=== PATIENT | male | born 1965 | race Caucasian/White ===

== ENCOUNTER 2019-03-06 02:30 | Inpatient (IN) | payer OTHER ==
[~2019-03-06] VITALS: Ht 182.9 cm; Wt 71.9 kg
[2019-03-06 02:48] LABS: BASOPHILS ABSOLUTE AUTO 0.01 K/mm3 (0.00-0.23); BASOPHILS PERCENT AUTO 0 % (0-2); EOSINOPHILS PERCENT AUTO 0 % (0-6); Hematocrit 23.7 % (37.0-53.0); Hemoglobin 7.6 g/dL (13.5-17.5); IMMATURE GRAN ABSOLUTE AUTO 0.08 K/mm3 (0.00-0.10); IMMATURE GRAN PERCENT AUTO 1 % (0-1); LYMPHOCYTES ABSOLUTE AUTO 1.23 K/mm3 (0.84-5.20); LYMPHOCYTES PERCENT AUTO 9 % (21-46); MONOCYTES ABSOLUTE AUTO 0.46 K/mm3 (0.16-1.47); MONOCYTES PERCENT AUTO 4 % (4-13); Mean Corpuscular HGB 30.8 pg (26.0-34.0); Mean Corpuscular HGB Conc 32.1 g/dL (31.5-36.5); Mean Corpuscular Volume 96 fL (80-100); Mean Platelet Volume 10.2 fL (9.1-12.4); NEUTROPHILS PERCENT AUTO 86 % (41-73); Platelet Count 283 K/mm3 (150-400); RDW Coefficient Variation 11.9 % (11.7-14.2); RDW Standard Deviation 41.8 fL (35.1-46.3); Red Blood Cell Count 2.47 M/mm3 (4.30-5.90); White Blood Cell Count 13.08 K/mm3 (4.00-11.30)
[2019-03-06 03:08] LABS: Alanine Aminotransfer (ALT/SGP 19 U/L (12-78); Albumin, Blood 2.4 g/dL (3.4-5.0); Albumin/Globulin Ratio 0.9 (0.8-1.8); Alk Phos 52 U/L (50-136); Anion Gap 8 mmol/L (6-16); Aspartate Aminotrans (AST/SGOT 14 U/L (12-37); Bilirubin, Total 0.2 mg/dL (0.1-1.0); Blood Urea Nitrogen 67 mg/dL (8-24); Bun/Creatinine Ratio 81.5 (12.0-20.0); CO2, Blood 26 mmol/L (21-32); Calcium, Blood 7.3 mg/dL (8.5-10.1); Chloride, Blood 107 mmol/L (98-108); Creatinine, Blood 0.82 mg/dL (0.60-1.20); Globulin, Blood 2.6 g/dL (2.2-4.0); Glomerular Filtration Rate >60 (60-); Glucose, Blood 192 mg/dL (70-99); Potassium, Blood 3.6 mmol/L (3.5-5.5); Sodium, Blood 141 mmol/L (136-145)
[2019-03-06 06:28] LABS: U Amphetamine Screen DETECTED; U Barbituate Screen Not Detected; U Benzodiazapine Screen Not Detected; U Buprenorphine Screen Not Detected; U Cannabinoids Screen DETECTED; U Cocaine Screen Not Detected; U Methadone Screen Not Detected; U Methamphetamine Screen DETECTED; U Opiates Screen Not Detected; U Oxycodone Screen Not Detected; U Phencyclidine Screen Not Detected; U Propoxyphene Screen Not Detected
[2019-03-06 08:09] LABS: Hematocrit 27.3 % (37.0-53.0); Hemoglobin 8.8 g/dL (13.5-17.5); Mean Corpuscular HGB 29.8 pg (26.0-34.0); Mean Corpuscular HGB Conc 32.2 g/dL (31.5-36.5); Mean Platelet Volume 9.9 fL (9.1-12.4); Platelet Count 245 K/mm3 (150-400); RDW Coefficient Variation 13.2 % (11.7-14.2); RDW Standard Deviation 44.5 fL (35.1-46.3); Red Blood Cell Count 2.95 M/mm3 (4.30-5.90); White Blood Cell Count 14.21 K/mm3 (4.00-11.30)
[2019-03-06 08:11] LABS: Mean Corpuscular Volume 93 fL (80-100)
[2019-03-06 08:17] LABS: International Normalized Ratio 0.98; Prothrombin Time Results 10.4 Sec (9.7-11.5)
[2019-03-06 08:24] LABS: Alanine Aminotransfer (ALT/SGP 24 U/L (12-78); Albumin, Blood 2.4 g/dL (3.4-5.0); Albumin/Globulin Ratio 0.8 (0.8-1.8); Alk Phos 54 U/L (50-136); Anion Gap 6 mmol/L (6-16); Aspartate Aminotrans (AST/SGOT 16 U/L (12-37); Bilirubin, Total 0.3 mg/dL (0.1-1.0); Blood Urea Nitrogen 65 mg/dL (8-24); Bun/Creatinine Ratio 101.2 (12.0-20.0); CO2, Blood 26 mmol/L (21-32); Calcium, Blood 7.6 mg/dL (8.5-10.1); Chloride, Blood 111 mmol/L (98-108); Creatinine, Blood 0.64 mg/dL (0.60-1.20); Glomerular Filtration Rate >60 (60-); Glucose, Blood 118 mg/dL (70-99); Potassium, Blood 3.8 mmol/L (3.5-5.5); Sodium, Blood 143 mmol/L (136-145); Total Protein, Blood 5.4 g/dL (6.4-8.2)
--- NOTE | 2019-03-06 09:30 | NUR ---
DR PRITCHARD: PROVIDER AT BEDSIDE TO SEE PT. STS HE WOULD LIKE TO PERFORM ENDOSCOPY LATER TODAY. PT AWARE OF THIS & IS AGREEABLE. WILL CONTINUE TO MONITOR & UPDATE NEEDED.
--- NOTE | 2019-03-06 09:40 | NUR ---
DR GREEN / UPDATE: PROVIDER AT BEDSIDE THIS AM TO SEE PT. STS HE MAY BE PCU STATUS AFTER H&H RESULTS BACK IF IMPROVING. NO OTHER CHANGES AT THIS TIME. CALL TO PROVIDER TO NOTIFY HIM OF PT's CURRENT HBG 8.8. HE STS THAT SECOND UNIT OF BLOOD MAY BE HELD AT THIS TIME & IS NOTIFIED OF DR BENITES PLANS. WILL CONTINUE TO MONITOR & UPDATE NEEDED.
--- NOTE | 2019-03-06 12:00 | NUR ---
ENDOSCOPY: DR PRITCHARD & DAY SURGERY TEAM AT BEDSIDE TO PERFORM SCOPE. WILL CONTINUE TO MONITOR & ASSIST PRN.
--- NOTE | 2019-03-06 12:40 | NUR ---
PROCEDURE COMPLETED: DAY SURGERY TEAM REMAINS AT BEDSIDE. DR PRITCHARD OUT OF ROOM, PT RECEIVED ONE CLIP IN STOMACH, SEE PROVIDER NOTE. MATTHEW PER EMAR BY DAY PROPERTY LOSS INSURANCE CLAIM ADJUSTER FOR PT's C/O NAUSEA/ DRY HEAVES. DR PRITCHARD REQUESTS THAT THE PT REMAIN IN ICU FOR AT LEAST THE AFTERNOON, IF CONTINUES DOING WELL, MAY CHANGE STATUS AT THAT TIME. WILL CONTINUE TO MONITOR & UPDATE NEEDED.
--- NOTE | 2019-03-06 12:43 | NUR ---
03/06/19 1243 RaissaBryon PATIENT DETERMINED TO BE ASA APPROPRIATE FOR PROPOFOL SEDATION PRIOR TO START OF PROCEDURE BY DR. Julia Mobley PlacedHistory, Chart, Medications and Allergies reviewed before start of procedure.MONITOR INTACT WITH CONTINUOUS PULSE OXIMETRY AND INTERMITTENT BP.Patient confirms NPO status and agrees with scheduled surgery.O2 VIA N/C INTACT THROUGHOUT SEDATION/PROCEDURE. VSS THROUGH OUT PROCEDURE AND TAKEN EVERY 3 MINUTES.
[2019-03-06 13:47] LABS: Hematocrit 27.5 % (37.0-53.0); Hemoglobin 9.2 g/dL (13.5-17.5)
--- NOTE | 2019-03-06 18:40 | NUR ---
SHIFT SUMMARY: NO ACUTE CHANGES SINCE PRIOR UPDATES. PT REMAINS A&O, PLEASANT & COOPERATIVE. HE IS MORE AWAKE THIS EVENING, ABLE TO WAKE LONG ENOUGH TO EAT BUT THEN QUICKLY RESUMES SLEEPING. LS ARE CLEAR T/O, PT ON RA W/ O2 SATS > 92%. MONITOR SHOWS SR W/ HR 90s, BP STABLE. BT x4, PT HAS HAD NO BMs OR EPISODES OF EMESIS DURING THIS SHIFT. DOES STATE HAVING MILD ABD PAIN AFTER DINNER. PT VOIDING W/O DIFFICULTY USING URINAL. PROTONIX DRIP PER EMAR. WILL CONTINUE TO MONITOR & REPORT OFF TO ONCOMING RN.
[2019-03-06 19:21] LABS: Hematocrit 28.3 % (37.0-53.0); Hemoglobin 9.1 g/dL (13.5-17.5)
[2019-03-07 03:33] LABS: BASOPHILS ABSOLUTE AUTO 0.03 K/mm3 (0.00-0.23); BASOPHILS PERCENT AUTO 0 % (0-2); EOSINOPHILS PERCENT AUTO 1 % (0-6); Hematocrit 24.4 % (37.0-53.0); Hemoglobin 8.1 g/dL (13.5-17.5); IMMATURE GRAN ABSOLUTE AUTO 0.04 K/mm3 (0.00-0.10); IMMATURE GRAN PERCENT AUTO 0 % (0-1); LYMPHOCYTES PERCENT AUTO 17 % (21-46); MONOCYTES ABSOLUTE AUTO 0.46 K/mm3 (0.16-1.47); MONOCYTES PERCENT AUTO 4 % (4-13); Mean Corpuscular HGB 30.8 pg (26.0-34.0); Mean Corpuscular HGB Conc 33.2 g/dL (31.5-36.5); Mean Corpuscular Volume 93 fL (80-100); Mean Platelet Volume 9.3 fL (9.1-12.4); NEUTROPHILS ABSOLUTE AUTO 8.93 K/mm3 (1.96-9.15); NEUTROPHILS PERCENT AUTO 77 % (41-73); Platelet Count 230 K/mm3 (150-400); RDW Coefficient Variation 13.5 % (11.7-14.2); RDW Standard Deviation 45.3 fL (35.1-46.3); Red Blood Cell Count 2.63 M/mm3 (4.30-5.90); White Blood Cell Count 11.56 K/mm3 (4.00-11.30)
[2019-03-07 03:48] LABS: Anion Gap 3 mmol/L (6-16); Blood Urea Nitrogen 33 mg/dL (8-24); Bun/Creatinine Ratio 49.3 (12.0-20.0); CO2, Blood 31 mmol/L (21-32); Calcium, Blood 7.7 mg/dL (8.5-10.1); Chloride, Blood 112 mmol/L (98-108); Creatinine, Blood 0.67 mg/dL (0.60-1.20); Glomerular Filtration Rate >60 (60-); Glucose, Blood 114 mg/dL (70-99); Sodium, Blood 146 mmol/L (136-145)
--- NOTE | 2019-03-07 07:39 | NUR ---
ASSUMED CARE: REPORT RECEIVED FROM VALDEMAR Krause RN. ASSUMED CARE OF THIS PT AT APPROX 0700. ON ASSESSMENT, THE PT IS A&O. HE IS DROWSY & STS FEELING OF GENERAL WEAKNESS. HE REQUESTS TAKING A SHOWER THIS AM. LS ARE CLEAR T/O, PT ON RA W/ O2 SATS > 92%. MONITOR SHOWS SR W/ HR 60-70s, BP STABLE. PT HAS NO GI COMPLAINTS & HAS HAD NO SIGNS OF BLEEDING. PT VOIDS USING URINAL W/O DIFFICULTY. WILL CONTINUE TO MONITOR & UPDATE NEEDED.
--- NOTE | 2019-03-07 08:00 | NUR ---
DR GREEN: PROVIDER IS AT BEDSIDE TO SEE PT. STS HE MAY BE TRANSFERRED TO MEDICAL STATUS W/ NO TELE NEEDED, ORDERS PLACED. NO OTHER CHANGES AT THIS TIME. WILL CONTINUE TO MONITOR & UPDATE NEEDED.
[2019-03-07 09:01] LABS: Hematocrit 24.1 % (37.0-53.0); Hemoglobin 7.9 g/dL (13.5-17.5)
--- NOTE | 2019-03-07 16:00 | NUR ---
DR PAREKH: CALL TO PROVIDER W/ REQUEST FOR CLARIFICATION REGARDING PROTONIX DRIP ORDER. HE STS HE WOULD LIKE THE INFUSION TO CONTINUE FOR A TOTAL OF 72 HRS. PER EMAR, INFUSION SHOULD BE COMPLETE 03/09/19 @ 1000. WILL CONTINUE TO MONITOR & UPDATE NEEDED.
--- NOTE | 2019-03-07 17:17 | NUR ---
SHIFT SUMMARY: NO ACUTE CHANGES SINCE PRIOR UPDATES. PT REMAINS A&O, PLEASANT & COOPERATIVE. HE HAS BEEN DROWSY FOR MOST OF THIS SHIFT BUT AWAKENS EASILY. LS ARE CLEAR T/O, PT ON RA W/ O2 SATS > 92%. HEART MONITOR HAS BEEN REMOVED PT IS NOW MEDICAL STATUS. BP STABLE. PT HAS NO GI COMPLAINTS & VOIDS W/O DIFFICULTY USING URINAL AT BEDSIDE. PROTONIX DRIP INFUSING PER ORDERS. WILL CONTINUE TO MONITOR & REPORT OFF TO ONCOMING RN.
--- NOTE | 2019-03-07 21:27 | NUR ---
ASSUMED CARE OF PT, REPORT RCV'D FROM CEM NUNN. PT ALERT AND ORIENTED, DROWSY , NO COMPLAINT OF PAIN, NAUSEA, VOMITING. NO EVIDENCE OF BLOOD IN STOOL TODAY PER DAYSHIFT NURSE. PROTONIX GTT INFUSING. VSS. SEE FULL SHIFT ASSESSMENT.
--- NOTE | 2019-03-07 22:05 | NUR ---
REPORT RECIEVED FROM CAYETANO MANAGER SHAREPOINT AT 1471 AND PT T/F TO ROOM 355 AT [phone].
--- NOTE | 2019-03-07 22:15 | NUR ---
PT ORIENTED TO ROOM AND CALL SYSTEM. THIS RN AGREES TO PREVIOUS SUPERVISOR STRIPPING'S SHIFT ASSESSMENT. VSS UPON T/F AND PT DENIES COMPLAINTS/NEEDS. HE'S A/OX4 AND INDEPENDENT IN ROOM. PT AWARE TO ALERT STAFF OF ANY BM'S TO CHECK FOR S/S BLEEDING. PROTONIX GTT CONT'S INFUSING. ORANGE JUICE PROVIDED PER PT REQUEST. WCTM FOR CHANGES.
--- NOTE | 2019-03-08 03:24 | NUR ---
SUMMARY: PT WAS ICU T/F THIS SHIFT. HE IS A/OX4, CALLS APPROPRIATELY AND INDEPENDENT IN ROOM. PROTONIX GTT INFUSES FOR GI BLEED BUT PT HAS BEEN ASYMPTOMATIC OF DISTRESS. HE DENIES DIZZINESS, N/V, ABDO PAIN/TENDERNESS AND HAS VSS/AFEBRILE. HE HASN'T HAD ANY BM'S THIS SHIFT BUT IS AWARE TO ALERT STAFF IF HE DOES TO CHECK FOR JENNIFER/OLD BLEEDING. HE IS TOLERATING FULL LIQ DIET W/O COMPLAINTS. NO ACUTE CHANGES. POSSIBLE D/C TODAY W/AM LABS PENDING. WCTM AND REPORT TO DAY RN.
[2019-03-08 04:49] LABS: BASOPHILS ABSOLUTE AUTO 0.03 K/mm3 (0.00-0.23); BASOPHILS PERCENT AUTO 1 % (0-2); EOSINOPHILS ABSOLUTE AUTO 0.24 K/mm3 (0.00-0.68); EOSINOPHILS PERCENT AUTO 4 % (0-6); Hemoglobin 7.7 g/dL (13.5-17.5); IMMATURE GRAN ABSOLUTE AUTO 0.02 K/mm3 (0.00-0.10); IMMATURE GRAN PERCENT AUTO 0 % (0-1); LYMPHOCYTES PERCENT AUTO 24 % (21-46); MONOCYTES ABSOLUTE AUTO 0.43 K/mm3 (0.16-1.47); MONOCYTES PERCENT AUTO 7 % (4-13); Mean Corpuscular HGB 30.2 pg (26.0-34.0); Mean Corpuscular HGB Conc 33.5 g/dL (31.5-36.5); Mean Platelet Volume 9.7 fL (9.1-12.4); NEUTROPHILS ABSOLUTE AUTO 4.32 K/mm3 (1.96-9.15); NEUTROPHILS PERCENT AUTO 65 % (41-73); Platelet Count 235 K/mm3 (150-400); RDW Coefficient Variation 13.2 % (11.7-14.2); RDW Standard Deviation 43.8 fL (35.1-46.3); Red Blood Cell Count 2.55 M/mm3 (4.30-5.90); White Blood Cell Count 6.64 K/mm3 (4.00-11.30)
[2019-03-08 04:57] LABS: Mean Corpuscular Volume 90 fL (80-100)
[2019-03-08 05:20] LABS: Anion Gap 2 mmol/L (6-16); Blood Urea Nitrogen 13 mg/dL (8-24); Bun/Creatinine Ratio 21.6 (12.0-20.0); CO2, Blood 32 mmol/L (21-32); Chloride, Blood 107 mmol/L (98-108); Glomerular Filtration Rate >60 (60-); Glucose, Blood 101 mg/dL (70-99); Potassium, Blood 3.6 mmol/L (3.5-5.5); Sodium, Blood 141 mmol/L (136-145)
--- NOTE | 2019-03-08 18:34 | NUR ---
SHIFT SUMMARY PT HAS HAD NO COMPLAINTS OF NAUSEA, ABDOMINAL PAIN, OR SHORTNESS OF BREATH THIS SHIFT. PROTONIX DRIP INFUSING PER ORDERS. PT TOLERATING FULL LIQUID DIET. PT INDEPENDENT IN ROOM. NO CHANGES THIS SHIFT. PLANS FOR PT TO DISCHARGE TOMORROW.
[2019-03-09 04:48] LABS: BASOPHILS ABSOLUTE AUTO 0.03 K/mm3 (0.00-0.23); BASOPHILS PERCENT AUTO 1 % (0-2); EOSINOPHILS ABSOLUTE AUTO 0.16 K/mm3 (0.00-0.68); EOSINOPHILS PERCENT AUTO 3 % (0-6); Hematocrit 22.9 % (37.0-53.0); Hemoglobin 7.7 g/dL (13.5-17.5); IMMATURE GRAN ABSOLUTE AUTO 0.02 K/mm3 (0.00-0.10); IMMATURE GRAN PERCENT AUTO 0 % (0-1); LYMPHOCYTES PERCENT AUTO 25 % (21-46); MONOCYTES ABSOLUTE AUTO 0.31 K/mm3 (0.16-1.47); MONOCYTES PERCENT AUTO 5 % (4-13); Mean Corpuscular HGB Conc 33.6 g/dL (31.5-36.5); Mean Corpuscular Volume 92 fL (80-100); Mean Platelet Volume 9.7 fL (9.1-12.4); NEUTROPHILS ABSOLUTE AUTO 4.29 K/mm3 (1.96-9.15); NEUTROPHILS PERCENT AUTO 67 % (41-73); Platelet Count 290 K/mm3 (150-400); RDW Coefficient Variation 12.9 % (11.7-14.2); RDW Standard Deviation 42.5 fL (35.1-46.3); Red Blood Cell Count 2.48 M/mm3 (4.30-5.90); White Blood Cell Count 6.41 K/mm3 (4.00-11.30)
--- NOTE | 2019-03-09 05:31 | NUR ---
SHIFT SUMMARY DENIES SOB, NAUSEA, AND PAIN. AOX4. INDEPENDENT. R FA IS SL. R AC HAS PROTONIX @ 10ML/HR. VSS ON RA. PLAN TO DC TODAY.
[2019-03-09] MEDS ORDERED: Pantoprazole So20 MG PO (11:31)
--- NOTE | 2019-03-09 13:45 | NUR ---
DISCHARGE INSTRUCTIONS COMPLETED AND DISCUSSED WITH PT EXPRESSING UNDERSTANDING. DISCUSSED IMPORTANCE OF FOLLOW UP WITH NEW PCP AND TAKING PROTONIX AFTER DISCHARGE. HAS DENIED ANY PAIN FOR NAUSEA THROUGH DAY. TOLERATING REGULAR DIET. TO CURB VIA W/C.
== END 2019-03-09 13:35 | disposition home or self-care (01) | DRG 377 ==
LOC: ER 02:30 → ICUE 04:37 → ICUW 04:37 → ICUE 05:27 → ICUW 05:27 → ICUE 05:47 → MEDS 03-07 11:11 → ICUE 03-07 11:15 → MEDS 03-07 22:05 → ENPENDDIS 03-09 11:13 → MEDS 03-09 13:35
PROVIDERS: Emergency Medicine; Hospitalist; Internal Medicine Gastroenterology; ADMIT Internal Medicine
PROC: 0W3P8ZZ Control Bleeding in Gastrointestinal Tract, Via Natural or Artificial Opening Endoscopic (ICD-10-PCS; principal; 2019-03-06 11:00)
DX: K31.82 Dieulafoy lesion (hemorrhagic) of stomach and duodenum (principal); G92 Toxic encephalopathy; F15.93 Other stimulant use, unspecified with withdrawal; D62 Acute posthemorrhagic anemia
CPT/HCPCS: 36415; 36430; 70450; 80048; 80053; 82140; 82272; 85014; 85018; 85025; 85027; 85610; 86850; 86900; 86901; 86923; 93005; 93010; 96361; 96374; 99285-25; C9113; G0378; J0171; J1430; J2354; J2405; J2704; J7030; J7050; J7120; P9016

== ENCOUNTER 2019-12-26 10:44 | Emergency (ER) | payer OTHER ==
[~2019-12-26] VITALS: Ht 182.9 cm; Wt 79.4 kg
[~2019-12-26 10:44] MED LIST: Pantoprazole So20 MG PO
[2019-12-26 11:55] LABS: BASOPHILS ABSOLUTE AUTO 0.02 K/mm3 (0.00-0.23); BASOPHILS PERCENT AUTO 0 % (0-2); EOSINOPHILS ABSOLUTE AUTO 0.01 K/mm3 (0.00-0.68); EOSINOPHILS PERCENT AUTO 0 % (0-6); Hematocrit 43.7 % (37.0-53.0); Hemoglobin 14.1 g/dL (13.5-17.5); IMMATURE GRAN ABSOLUTE AUTO 0.04 K/mm3 (0.00-0.10); IMMATURE GRAN PERCENT AUTO 0 % (0-1); LYMPHOCYTES ABSOLUTE AUTO 1.54 K/mm3 (0.84-5.20); LYMPHOCYTES PERCENT AUTO 12 % (21-46); MONOCYTES ABSOLUTE AUTO 0.64 K/mm3 (0.16-1.47); MONOCYTES PERCENT AUTO 5 % (4-13); Mean Corpuscular HGB 29.2 pg (26.0-34.0); Mean Corpuscular HGB Conc 32.3 g/dL (31.5-36.5); Mean Corpuscular Volume 91 fL (80-100); Mean Platelet Volume 9.5 fL (9.1-12.4); NEUTROPHILS ABSOLUTE AUTO 10.31 K/mm3 (1.96-9.15); NEUTROPHILS PERCENT AUTO 82 % (41-73); Platelet Count 311 K/mm3 (150-400); RDW Coefficient Variation 12.6 % (11.7-14.2); RDW Standard Deviation 41.8 fL (35.1-46.3); Red Blood Cell Count 4.83 M/mm3 (4.30-5.90); White Blood Cell Count 12.56 K/mm3 (4.00-11.30)
[2019-12-26 12:23] LABS: Alanine Aminotransfer (ALT/SGP 25 U/L (12-78); Albumin, Blood 3.6 g/dL (3.4-5.0); Albumin/Globulin Ratio 0.9 (0.8-1.8); Alk Phos 90 U/L (50-136); Anion Gap 4 mmol/L (6-16); Aspartate Aminotrans (AST/SGOT 19 U/L (12-37); Bilirubin, Total 0.5 mg/dL (0.1-1.0); Blood Urea Nitrogen 16 mg/dL (8-24); Bun/Creatinine Ratio 21.5 (12.0-20.0); CO2, Blood 31 mmol/L (21-32); Calcium, Blood 8.5 mg/dL (8.5-10.1); Chloride, Blood 104 mmol/L (98-108); Creatinine, Blood 0.74 mg/dL (0.60-1.20); Globulin, Blood 4.2 g/dL (2.2-4.0); Glomerular Filtration Rate >60 (60-); Glucose, Blood 110 mg/dL (70-99); Sodium, Blood 139 mmol/L (136-145); Total Protein, Blood 7.8 g/dL (6.4-8.2)
[2019-12-26] MEDS ORDERED: ONDA4 PO (14:14)
== END 2019-12-26 14:24 | disposition home or self-care (01) ==
LOC: ER 10:44
PROVIDERS: Emergency Medicine
DX: R11.10 Vomiting, unspecified (principal); Z87.891 Personal history of nicotine dependence
CPT/HCPCS: 36415; 74022; 80053; 83690; 85025; 93005; 93010; 99284-25

== ENCOUNTER 2021-12-22 13:00 | Emergency (ER) | payer OTHER ==
[~2021-12-22] VITALS: Ht 182.9 cm; Wt 79.4 kg
[~2021-12-22 13:00] MED LIST changes: +ONDA4 PO
[2021-12-22 13:19] LABS: BASOPHILS ABSOLUTE AUTO 0.02 K/mm3 (0.00-0.23); BASOPHILS PERCENT AUTO 0 % (0-2); EOSINOPHILS PERCENT AUTO 1 % (0-6); Hematocrit 39.1 % (37.0-53.0); Hemoglobin 13.4 g/dL (13.5-17.5); IMMATURE GRAN ABSOLUTE AUTO 0.03 K/mm3 (0.00-0.10); IMMATURE GRAN PERCENT AUTO 0 % (0-1); LYMPHOCYTES ABSOLUTE AUTO 1.39 K/mm3 (0.84-5.20); LYMPHOCYTES PERCENT AUTO 13 % (21-46); MONOCYTES ABSOLUTE AUTO 0.56 K/mm3 (0.16-1.47); MONOCYTES PERCENT AUTO 5 % (4-13); Mean Corpuscular HGB 30.7 pg (26.0-34.0); Mean Corpuscular HGB Conc 34.3 g/dL (31.5-36.5); Mean Corpuscular Volume 90 fL (80-100); Mean Platelet Volume 9.5 fL (9.1-12.4); NEUTROPHILS ABSOLUTE AUTO 8.47 K/mm3 (1.96-9.15); NEUTROPHILS PERCENT AUTO 80 % (41-73); Platelet Count 377 K/mm3 (150-400); RDW Coefficient Variation 12.1 % (11.7-14.2); RDW Standard Deviation 39.3 fL (35.1-46.3); Red Blood Cell Count 4.36 M/mm3 (4.30-5.90); White Blood Cell Count 10.57 K/mm3 (4.00-11.30)
[2021-12-22 13:38] LABS: Albumin, Blood 3.3 g/dL (3.4-5.0); Albumin/Globulin Ratio 0.8 (0.8-1.8); Bilirubin, Total 0.2 mg/dL (0.1-1.0); Bun/Creatinine Ratio 34.6 (12.0-20.0); Calcium, Blood 8.5 mg/dL (8.5-10.1); Creatinine, Blood 0.75 mg/dL (0.60-1.20); Potassium, Blood 3.3 mmol/L (3.5-5.5); Total Protein, Blood 7.3 g/dL (6.4-8.2)
[2021-12-22 15:38] LABS: Source, Urine Clean Catch
[2021-12-22 16:03] LABS: Appearance, Urine Clear (Clear); Bilirubin, Urine Neg (Neg); Blood, Urine Neg (Neg); Color, Urine Yellow (P-Yellow); Glucose Qualitative, Urine Neg (Neg); Ketones, Urine Neg (Neg); Leukocyte Esterase, Urine Neg (Neg); Nitrite, Urine Neg (Neg); Protein, Urine Neg (Neg); Specific Gravity, Urine 1.015 (1.003-1.022); Urobilinogen, Urine NORM (Normal); pH, Urine 6.5 (5.0-8.0)
[2021-12-22 16:28] LABS: U Amphetamine Screen DETECTED; U Barbituate Screen Not Detected; U Benzodiazapine Screen Not Detected; U Buprenorphine Screen Not Detected; U Cannabinoids Screen DETECTED; U Cocaine Screen Not Detected; U Methadone Screen Not Detected; U Methamphetamine Screen DETECTED; U Opiates Screen Not Detected; U Oxycodone Screen Not Detected; U Phencyclidine Screen Not Detected; U Propoxyphene Screen Not Detected
[2021-12-22] MEDS ORDERED: ONDA4ODT MM (17:06)
[2021-12-22] MEDS ORDERED: POWDERLAX238 GM PO (17:06)
[2021-12-22] MEDS ORDERED: DICY20 PO (17:06)
[2021-12-22] MEDS ORDERED: IBUP400 PO (17:06)
[2021-12-22] MEDS ORDERED: ACET500 PO (17:06)
== END 2021-12-22 17:23 | disposition home or self-care (01) ==
LOC: ER 13:00
PROVIDERS: Physician Assistant
DX: K80.20 Calculus of gallbladder without cholecystitis without obstruction (principal); K59.00 Constipation, unspecified; E87.6 Hypokalemia
CPT/HCPCS: 36415; 74176; 80053; 81003; 83690; 85025; 96361; 96374; 96375; 99284-25; A9270; J1885; J2405; J7030